=== PATIENT | male | born 1950 | race Caucasian/White ===

== ENCOUNTER 2016-11-02 06:55 | Day surgery (SDC) | payer MEDICARE ==
[~2016-11-02] VITALS: Ht 175.3 cm; Wt 84.1 kg
[~2016-11-02 06:55] MED LIST: AUGMENTIN 875-11 TAB PO; HYDROCODONE-APA1 TAB PO
[2016-11-02 07:42] VITALS: BP 128/61; Ht 175.3 cm; Wt 84.1 kg
[2016-11-02 07:44] LABS: HEMATOCRIT 56.6 % (42.0-54.0); HEMOGLOBIN 18.2 g/dL (13.5-17.5); MCH 31.4 pg (26.0-34.0); MCHC 32.2 g/dL (31.0-37.0); MCV 97.8 fL (80.0-100.0); MEAN PLATELET VOLUME 10.4 fL (7.4-10.4); RBC 5.79 10x6/uL (4.20-6.10); RDW 15.1 % (11.5-14.5); WBC 8.3 10x3/uL (4.8-10.8)
--- NOTE | 2016-11-02 12:20 | NUR ---
PATIENT AMBULATES TO BATHROOM WITHOUT UNSTEADINESS, VOIDS LARGE AMOUNT IN TOILET WITHOUT DIFFICULTY. PIV DC'D WITH TIP INTACT, PATIENT DRESSING IN PERSONAL CLOTHING
--- NOTE | 2016-11-02 12:48 | NUR ---
DISCHARGE INSTRUCTIONS REVIEWED WITH PATIENT AND SPOUSE, DISCHARGED HOME VIA WHEELCHAIR TO PRIVATE VEHICLE WITH SPOUSE
--- NOTE | 2016-11-02 15:44 | OP ---
PATIENT NAME: RAMOS IRIZARRY MEDICAL RECORD: [id number] :[birth year] LOCATION:D.OPS ADMISSION DATE: SURGEON: EDIE CARVAJAL MD DATE OF OPERATION: 11/02/2016 SURGEON: Edie Carvajal MD. PREOPERATIVE DIAGNOSES: 1. History of perforated diverticulitis with large bowel fistula. 2. History of Eligio procedure. POSTOPERATIVE DIAGNOSES: 1. History of perforated diverticulitis with large bowel fistula. 2. History of Eligio procedure. PROCEDURES PERFORMED: 1. Colonoscopy with hot biopsy. 2. Flexible proctoscopy. ANESTHESIA: Total intravenous anesthesia. COMPLICATIONS: None. SPECIMENS: Colon polyp at 30 cm. Case was contaminated. OPERATIVE COURSE: After consent was obtained, the patient was taken to the endoscopy suite and placed in the supine position on the gurney, at which time total intravenous anesthesia was given. A timeout was taken to confirm the correct patient and procedure. A bite block was placed. The patient was placed in left lateral decubitus position. The scope was inserted through the rectum. The rectum was copiously irrigated. The flexible proctoscopy was performed up to 25 cm at which time the staple line was encountered and appeared intact. The rectum was healthy and viable. At this time, the flexible proctoscopy was removed. Next, the ostomy appliance was removed. The colonoscope was inserted through the left lower quadrant colostomy. The colon was insufflated. The scope was advanced to the cecum. The ileocecal valve and the appendiceal orifice were identified. Approximately 13 minutes was spent on withdrawal of the scope. There was some diverticular disease noted in the descending colon. There was a hyperplastic polyp at 30 cm, a hot biopsy was performed. The specimen was sent for pathology. At this time, the colon was desufflated and the colonoscope was removed. The patient tolerated the procedure well. No complications occurred. The patient was discharged to the recovery room in satisfactory condition. TRANSINT:[id number] Voice Confirmation ID: [id number] DOCUMENT ID: [id number] OPERATIVE REPORT [id number] RAMOS IRIZARRY EDIE CARVAJAL MD at 1544 CC: [id number] DICTATION DATE: 11/02/16 1113 INSTRUCTOR EXTENSION WORK: 11/02/16 1158 [facility] [address] [place] [address]
== END 2016-11-02 12:48 | disposition home or self-care (01) ==
LOC: D.OPS 06:55
PROVIDERS: Anesthesiology
DX: K57.00 Diverticulitis of small intestine with perforation and abscess without bleeding (principal); K63.2 Fistula of intestine; F17.200 Nicotine dependence, unspecified, uncomplicated; J44.9 Chronic obstructive pulmonary disease, unspecified

== ENCOUNTER 2016-11-30 06:14 | Inpatient (IN) | payer MEDICARE ==
[2016-11-27 10:18] LABS: HEMATOCRIT 52.9 % (42.0-54.0); HEMOGLOBIN 17.1 g/dL (13.5-17.5); MCHC 32.3 g/dL (31.0-37.0); MCV 98.9 fL (80.0-100.0); MEAN PLATELET VOLUME 10.5 fL (7.4-10.4); RBC 5.35 10x6/uL (4.20-6.10); RDW 14.5 % (11.5-14.5); WBC 8.4 10x3/uL (4.8-10.8)
[~2016-11-30] VITALS: Ht 182.9 cm; Wt 85.7 kg
[2016-11-30] VITALS (12 sets, daily range): BP systolic 125–158; BP diastolic 60–84; BMI 25.7
--- NOTE | 2016-11-30 14:52 | NUR ---
called pharmacy for the d5lr with kcl order
--- NOTE | 2016-11-30 14:52 | NUR ---
PATIENT IS RESTING QUIETLY WITH EYES CLOSED. FAMILY AT BEDSIDE. PATIENT HAS NGT TO RIGHT NARE HOOKED TO LIWS. ASSESSMENT COMPLETED. PATIENT HAS SCDS TO BILATERAL LEGS. NO SIGNS OF DISTRESS NOTED. BED IN LOWEST POSITION, CALL LIGHT IN REACH. BED RAILS UP X'S 2.
--- NOTE | 2016-11-30 16:47 | NUR ---
Patient Name: RAMOS IRIZARRY Admission Status: Elective Accout number: [id number] Admission Date: 11-30-2016 : 1950 Admission Diagnosis: Attending: TRAVIS Current LOS: 1 Anticipated DC Date: 12-04-2016 Planned Disposition: Home Primary Insurance: [facility] Discharge Planning Comments: CM MET WITH PATIENTS FAMILY REGARDING D/C NEEDS AND PLANS. BREN (SISTER), VIOLET (DAUGHTER) STATED PATIENT HAS NO STEPS OR STAIRS AT HIS HOME. FAMILY WILL DRIVE PATIENT HOME AT DISCHARGE. PATIENT HAS NO PCP AND USES [facility] [address]. PATIENT IS INDEPENDENT WITH HIS CARE AND HAS NO DME AT HOME. PATIENT AND FAMILY WAITING TO SEE IF HE NEEDS HOME HEALTH AT DISCHARGE. PCP NONE [facility] [address]- [phone] BREN (SISTER) [phone] VIOLET (DAUGHTER) [phone] Rag Washer: Hattie Lamb How many steps to enter\exit or inside your home? 0 0 * PCP NONE 0 * Pharmacy [facility] [address] 0 * Preadmission Environment Home Alone 0 * ADLs Independent 0 * Equipment None 0 * List name and contact numbers for known caregivers / representatives who currently or will assist patient after discharge: BREN FITZGERALD (SISTER) [phone] VIOLET IRIZARRY (DAUGHTER) [phone] 0 * Community resources currently utilized None 0 * Additional services required to return to the preadmission environment? Yes 0 * Can the patient safely return to the preadmission environment? Yes 0 * Has this patient been hospitalized within the prior 30 days at any hospital? No 0 Grand Total: 0
--- NOTE | 2016-11-30 17:02 | NUR ---
CALLED PHARMACY AGAIN FOR IVF. SPOKE WITH ANTONINO
--- NOTE | 2016-11-30 17:56 | NUR ---
EMPTIED PATIENT'S SHANNAN DRAIN, 120ML APPEARS TO BE BLOOD. COMPRESSED SHANNAN, EMPTIED MEASURING CUP, AND SHANNAN DRAIN WAS FULL AGAIN. EMPTIED 100ML. CLEANED PATIENT'S ABD, SMALL AMOUNT OF BLOOD HAS LEAKED FROM SHANNAN DRAIN SITE. CHANGED PATIENT'S GOWN. EMPTIED 80ML FROM SHANNAN. COMPRESSED, WILL CONTINUE TO MONITOR. PATIENT REQUESTED PAIN MEDICATION, EXPLAINED TO PATIENT THAT HE IS VERY DROWSY AND EXPLAINED THAT IT IS NOT SAFE FOR HIM TO TAKE ANY NARCOTICS AT THIS TIME. SISTER AT BEDSIDE. EXPLAINED TO BOTH OF THEM THAT WHEN PATIENT IS MORE ALERT THAT WE WILL GET HIM SOMETHING FOR PAIN. BEFORE I LEFT THE ROOM, PATIENT ASLEEP AGAIN. HOB 30 DEGREES. NGT TO LIWS. NO SIGNS OF DISTRESS NOTED. OXYGEN VIA NASAL CANNULA AT 2L/MIN.
[2016-11-30 19:38] LABS: BASOPHILS 0.1 % (0.0-2.0); EOSINOPHILS 0.1 % (0-7); HEMATOCRIT 51.7 % (42.0-54.0); HEMOGLOBIN 16.4 g/dL (13.5-17.5); IMMATURE GRANULOCYTES 0.2 % (0-5); LYMPHOCYTES 5.9 % (15-50); MCH 31.8 pg (26.0-34.0); MCHC 31.7 g/dL (31.0-37.0); MCV 100.4 fL (80.0-100.0); MEAN PLATELET VOLUME 10.4 fL (7.4-10.4); MONOCYTES 6.7 % (2-11); PLATELET COUNT 177 10x3/uL (130-400); RBC 5.15 10x6/uL (4.20-6.10); RDW 14.5 % (11.5-14.5)
--- NOTE | 2016-11-30 21:08 | OP ---
PATIENT NAME: RAMOS IRIZARRY MEDICAL RECORD: [id number] :48 LOCATION:D.MS [id number] ADMISSION DATE:11/30/16 SURGEON: EDIE CARVAJAL MD DATE OF OPERATION: 11/30/2016 SURGEON: Edie Carvajal MD PREOPERATIVE DIAGNOSES: 1. History of perforated diverticulitis with intraabdominal abscess, colo-enterocutaneous fistula. 2. History of Eligio's procedure. POSTOPERATIVE DIAGNOSEES: 1. History of perforated diverticulitis with intraabdominal abscess, colo-enterocutaneous fistula. 2. History of Eligio's procedure. PROCEDURES PERFORMED: 1. Laparoscopic lysis of adhesions. 2. Laparoscopic mobilization of splenic flexure. 3. Exploratory laparotomy. 4. Colostomy reversal. ANESTHESIA: General. COMPLICATIONS: None. SPECIMENS: Colostomy. Case was clean contaminated. ESTIMATED BLOOD LOSS: 250 cc. OPERATIVE COURSE: After consent was obtained, the patient was taken to the operating room and placed in the supine position on the operating table. Next, general anesthesia was given via endotracheal intubation after a timeout was taken to confirm the correct patient and procedure. Thereafter, the abdomen was prepped and draped in typical sterile fashion and Ioban dressing was placed. Local anesthetic was injected into the right upper quadrant. Stab incision was made with an 11-blade scalpel. Using a 5-mm bladeless optical trocar, the abdomen was entered under direct laparoscopic vision. Adequate pneumoperitoneum was achieved. The abdominal cavity was inspected. No evidence of bowel injury. No evidence of bleeding. Two additional trocars were then placed, two 5-mm trocars in the right lateral and right lower quadrants under direct laparoscopic vision. Laparoscopic lysis of adhesions were performed. All midline abdominal adhesions were taken down. The adhesions around the colostomy site were taken down. At this time, the splenic flexure was mobilized laparoscopically to create adequate length this time. This was done with the Harmonic scalpel and blunt dissection. Once this was complete, a lower midline abdominal incision made with a 10-blade scalpel. Dissection continued to the level of the external oblique fascia with electrocautery. Fascia was incised using electrocautery. The peritoneum was incised using a 15 blade scalpel. Once the peritoneum was incised, the remaining portion of the incision was opened direct vision using the Bovie electrocautery. The large Willard retractor was then placed into the abdomen. The rectum was mobilized posteriorly along the avascular plane. The peritoneal reflection was taken down with electrocautery allowing for adequate mobilization of the rectum. Once we had adequate mobilization rectum, the OPERATIVE REPORT [id number] RAMOS IRIZARRY colostomy was closed with an 0 Vicryl suture. The skin was around the colostomy was excised using electrocautery. Dissection was then performed down the level of the external oblique fascia using electrocautery and blunt dissection. The colostomy was freed up circumferentially anteriorly and colostomy segment was passed through the opening of the abdominal wall in the abdominal cavity. At this time, there was adequate length on both the descending colon and rectum. A functional rotd-wa-cawu anastomosis was performed. The distal 5 cm of the colostomy were taken off with the linear cutting stapler and sent for pathology. A [id number] colorectal anastomosis was performed. Multiple stay sutures were placed. Enterotomies were created with electrocautery. The common enterotomy was created with the 60 mm green load stapler. The common enterotomy was then closed with the second part and 60 mm linear cutting stapler. The staple line was imbricated using 2-0 Stratafix suture. It was then reinforced with Tisseel and placed in the left pelvic side wall. At this time, the abdomen was copiously irrigated and suctioned. Careful attention was paid to hemostasis. At this time, the old colostomy site was closed with a #1 Prolene. The midline incision was closed with a #1 looped PDS and karla. The old colostomy site was packed with Kerlix gauze. Just prior to closure, a SHANNAN drain was placed through the right lower quadrant trocar in place on the left pericolic gutter and pelvis was secured to the skin with a 2-0 silk suture. Remaining trocar holes were closed with stapler. At the end of the case, all needle and instrument counts were correct. No complications occurred. The patient was extubated and transferred to the PACU in stable condition. TRANSINT:[id number] Voice Confirmation ID: [id number] DOCUMENT ID: [id number] EDIE CARVAJAL MD at 2108 CC: [id number] DICTATION DATE: 11/30/16 1328 EXCELSIOR MACHINE TENDER: 11/30/162021 ADM [facility] [place] [address] [place] [address]
[2016-12-01] VITALS (7 sets, daily range): BP systolic 113–140; BP diastolic 57–68; Ht 182.9 cm; Wt 85.7 kg
--- NOTE | 2016-12-01 03:24 | NUR ---
PATIENT IS LYING IN BED RESTING COMFORTABLY. WAS ASKING SOMEHING FOR PAIN EARLIER. CANNOT STAY AROUSED LONG ENOUGH. HAVE BEEN GIVING THE TYLENOL THAT IS PRESCRIBED AND HE HAS BEEN DOING OK WITH IT. BED LOW LOCKED CALL LIGHT IN REACH
[2016-12-01 05:36] LABS: BASOPHILS 0.2 % (0.0-2.0); EOSINOPHILS 0 % (0-7); HEMATOCRIT 47.3 % (42.0-54.0); IMMATURE GRANULOCYTES 0.2 % (0-5); LYMPHOCYTES 8.4 % (15-50); MCH 31.4 pg (26.0-34.0); MCHC 31.7 g/dL (31.0-37.0); MONOCYTES 6.2 % (2-11); PLATELET COUNT 154 10x3/uL (130-400); RBC 4.78 10x6/uL (4.20-6.10); RDW 14.5 % (11.5-14.5); WBC 10.6 10x3/uL (4.8-10.8)
--- NOTE | 2016-12-01 06:11 | NUR ---
PATIENT IS RESTING IN BED COMFORTABLY. 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 PAIN IS GOING DOWN. DENIED NEEDS AT THIS TIME. INTRUCTED TO CALL LIF NEEDED ANYTHING. PATIENT VERBALIZED UNDERSTANDING. BED LOW, LOCKED, CALL LIGHT IN REACH.
[2016-12-01 06:27] LABS: ANION GAP 9.1 mmol/L (8-16); CARBON DIOXIDE 29.7 mmol/L (21.0-32.0); CREATININE - SERUM 1.2 mg/dL (0.6-1.3); MAGNESIUM - SERUM 1.4 mg/dL (1.8-2.4); POTASSIUM - SERUM 4.8 mmol/L (3.5-5.1)
--- NOTE | 2016-12-01 07:05 | NUR ---
PATIENT RESTING QUIETLY WITH EYES CLOSED UPON ENTERING THE ROOM. PATIENT AROUSED EASILY, ORIENTED X'S 4. ASSESSMENT COMPLETED AT THIS TIME. NGT TO RIGHT NARE HOOKED TO LIWS, ONLY 50ML DARK GREEN GASTRIC CONTENT IN THE CANNESTER. CHECKED NGT FOR PLACEMENT VIA AUSCULTATION. AUSCULTATED THE SWISH. THEN ASPIRATED, DID NOT GET ANY RETURN.
--- NOTE | 2016-12-01 18:30 | NUR ---
LINDSEY CARE COMPLETED BY VINEET MCRAE.
[2016-12-02 04:00] VITALS: BP 116/52
[2016-12-02 06:30] LABS: BASOPHILS 0.1 % (0.0-2.0); EOSINOPHILS 0.4 % (0-7); HEMATOCRIT 42.2 % (42.0-54.0); HEMOGLOBIN 13.1 g/dL (13.5-17.5); IMMATURE GRANULOCYTES 0.4 % (0-5); LYMPHOCYTES 5.3 % (15-50); MCH 31.3 pg (26.0-34.0); MCV 100.7 fL (80.0-100.0); MEAN PLATELET VOLUME 11.1 fL (7.4-10.4); MONOCYTES 7.1 % (2-11); NEUTROPHILS 86.7 % (40-80); PLATELET COUNT 146 10x3/uL (130-400); RBC 4.19 10x6/uL (4.20-6.10); RDW 14.6 % (11.5-14.5)
[2016-12-02 06:44] LABS: WBC 13.4 10x3/uL (4.8-10.8)
[2016-12-02 06:56] LABS: ANION GAP 5.1 mmol/L (8-16); CALCIUM 7.6 mg/dL (8.5-10.1); CARBON DIOXIDE 34.4 mmol/L (21.0-32.0); CREATININE - SERUM 1.1 mg/dL (0.6-1.3); POTASSIUM - SERUM 4.5 mmol/L (3.5-5.1)
[2016-12-02 06:57] LABS: MAGNESIUM - SERUM 1.9 mg/dL (1.8-2.4)
--- NOTE | 2016-12-02 07:55 | NUR ---
NGT D/C BY WINDROWER OPERATOR. MONITORED, ALL STEPS FOLLOWED APPROPRIATELY.
[2016-12-02 08:13] VITALS: BP 127/53
[2016-12-02 12:10] VITALS: BP 112/57
--- NOTE | 2016-12-02 13:11 | NUR ---
NUTRITION MONITORING & EVAL PT VISIT. NG TUBE DC'D, CLEAR LIQUID DIET STARTED. WILL CONTINUE TO MONITOR DIET ADVANCEMENT, PT PROGRESS. RD FOLLOWING
--- NOTE | 2016-12-02 16:10 | NUR ---
AMBULATED WITH PATIENT IN THE HE. NOW SITTING ON THE SIDE OF THE BED USING INCENTIVE SPIROMETER.
[2016-12-02 16:36] VITALS: BP 96/51
[2016-12-02 19:00] VITALS: BP 106/49
--- NOTE | 2016-12-02 20:00 | NUR ---
ASSESSMENT PER FLOWSHEET. IV PATENT RT FOREARM OF D5LR W/10MEQ KCL INFUSING AT 125CC'S/HR. PROFESSOR OF MEDICINE OF MORPHINE IN USE WITH SETTINGS AT 1MG Q10MIN W/10MG Q4H L/O. O2 USES PRN OFF AT PRESENT. MIDLINE INCISION C/D/I WITH ELINOR INTACT. SHANNAN DRAIN PATENT AND COMPRESSED SCANT AMOUNT OF BLOODY DRAINAGE NOTED. BED ALARM BED ON. SR UP X2 CALL LIGHT WITHIN REACH.
--- NOTE | 2016-12-02 20:00 | NUR ---
ASSESSMENT PER FLOWSHEET. IV PATENT RT FOREARM OF D5W AT KVO RATE. SITE CLEAR. SR UP X2 CALL LIGHT WITHIN REACH BED ALARM BED ACTIVATED. SCD'S ON
--- NOTE | 2016-12-02 21:00 | NUR ---
MEDS GIVEN PER NOV. UP TO BR PASSED GAS NO STOOL.
--- NOTE | 2016-12-02 21:30 | NUR ---
MEDS GIVEN IN PUDDING.
--- NOTE | 2016-12-02 23:00 | NUR ---
INC URINE COMPLETE BED BATH WITH LINENS CHANGED PER VINEET MULLINS.
[2016-12-03] VITALS: BP 113/56
--- NOTE | 2016-12-03 | NUR ---
UP TO BR HAD 3 TINY BLOOD CLOTS FROM RECTAL AREA. NO STOOL.
--- NOTE | 2016-12-03 02:00 | NUR ---
INC URINE LINENS CHANGED. RESTING QUIETLY.
--- NOTE | 2016-12-03 03:00 | NUR ---
RESTING AT THIS TIME USES URINAL TO VOID.
[2016-12-03 04:00] VITALS: BP 104/50
--- NOTE | 2016-12-03 05:00 | NUR ---
NO CHANGES IN ASSESSMENT. SR UP X2 CALL LIGHT WITHIN REACH MEDS GIVEN PER NOV.
--- NOTE | 2016-12-03 06:19 | NUR ---
MEDS GIVEN PER MAR. NO CHANGES IN ASSESSMENT.
[2016-12-03 06:32] LABS: CALC OSMOLALITY 276 mosm/kg (275-300); CALCIUM 8.4 mg/dL (8.5-10.1); CHLORIDE - SERUM 104 mmol/L (98-107); CREATININE - SERUM 0.9 mg/dL (0.6-1.3); GLUCOSE 94 mg/dL (74-106); MAGNESIUM - SERUM 1.7 mg/dL (1.8-2.4); POTASSIUM - SERUM 3.9 mmol/L (3.5-5.1); SODIUM 139 mmol/L (136-145); UREA NITROGEN 10 mg/dL (7-18); eGFR NON AFRICAN AMERICAN 89 mL/min (90-120)
[2016-12-03 06:34] LABS: BASOPHILS 0.1 % (0.0-2.0); EOSINOPHILS 2.4 % (0-7); HEMATOCRIT 37.7 % (42.0-54.0); HEMOGLOBIN 11.7 g/dL (13.5-17.5); IMMATURE GRANULOCYTES 0.4 % (0-5); LYMPHOCYTES 8.2 % (15-50); MCV 99.7 fL (80.0-100.0); MEAN PLATELET VOLUME 10.8 fL (7.4-10.4); MONOCYTES 7.4 % (2-11); NEUTROPHILS 81.5 % (40-80); PLATELET COUNT 141 10x3/uL (130-400); RBC 3.78 10x6/uL (4.20-6.10); RDW 14.4 % (11.5-14.5); WBC 11.4 10x3/uL (4.8-10.8)
--- NOTE | 2016-12-03 07:42 | NUR ---
PATIENT RESTING IN BED AND RECEIVING A BREATHING TREATMENT. PATIENT IS AWAKE, ALERT, AND ORIENTED X4. IV SITE PATENT WITHOUT ANY S/S OF INFECTION IN PATIENT'S RIGHT FOREARM. SHELTER DIRECTOR MORPHINE IN USE AT THE BEDSIDE. PATIENT DENIES ANY NEEDS AT PRESENT TIME. CALL LIGHT IN PATIENT'S REACH. WILL MONITOR.
[2016-12-03 07:52] VITALS: BP 173/67
--- NOTE | 2016-12-03 08:25 | NUR ---
SCHEDULED MORNING MEDICATIONS GIVEN TO PATIENT. PATIENT TOLERATED WELL. ASSESSMENT COMPLETED. SEE FLOWSHEET FOR ANY DETAILS. IV SITE PATENT WITHOUT ANY S/S OF INFECTION IN PATIENT'S RIGHT FOREARM. PATIENT DENIES ANY NEEDS. CALL LIGHT IN PATIENT'S REACH. WILL MONITOR PATIENT.
[2016-12-03 12:21] VITALS: BP 117/59
--- NOTE | 2016-12-03 14:00 | NUR ---
PATIENT RESTING QUIETLY WITH EYES CLOSED. NO S/S OF DISTRESS NOTED. CALL LIGHT IN PATIENT'S REACH. WILL MONITOR PATIENT.
[2016-12-03 15:48] VITALS: BP 118/49
[2016-12-03 20:00] VITALS: BP 135/61
--- NOTE | 2016-12-03 20:00 | NUR ---
PATIENT IN BED WATCHING TV. HOB 30 DEGREES. AAOX4. RR EVEN AND UNLABORED. O2 @ 2L VIA NC. 0 S/S OF DISTRESS. DENIES PAIN AT THIS TIME. IV TO RIGHT FA PATENT WITH NO REDNESS OR SWELLING. MIDLINE INCISION TO ABD CLOSED WITH ELINOR AND WELL APPROXIMATED. DRESSING TO LLQ. SHANNAN DRAIN TO RLQ COMPRESSED. SCD'S IN ROOM BUT OFF. SRX2. BED LOW. CALL LIGHT WITHIN REACH.
--- NOTE | 2016-12-03 22:05 | NUR ---
RESITED IV TO LEFT FA. NIGHTTIME MEDS GIVEN. NO OTHER NEEDS AT THIS TIME.
[2016-12-04] VITALS (7 sets, daily range): BP systolic 114–132; BP diastolic 54–69
--- NOTE | 2016-12-04 03:48 | NUR ---
PATIENT SLEEPING WITH NO DISTRESS NOTED. CALL LIGHT WITHIN REACH.
[2016-12-04 05:05] LABS: BASOPHILS 0.2 % (0.0-2.0); EOSINOPHILS 6.8 % (0-7); HEMATOCRIT 36.2 % (42.0-54.0); HEMOGLOBIN 11.2 g/dL (13.5-17.5); IMMATURE GRANULOCYTES 0.2 % (0-5); LYMPHOCYTES 14.4 % (15-50); MCH 30.7 pg (26.0-34.0); MCHC 30.9 g/dL (31.0-37.0); MCV 99.2 fL (80.0-100.0); MEAN PLATELET VOLUME 10.7 fL (7.4-10.4); NEUTROPHILS 69.4 % (40-80); PLATELET COUNT 165 10x3/uL (130-400); RBC 3.65 10x6/uL (4.20-6.10); RDW 14.3 % (11.5-14.5); WBC 8.8 10x3/uL (4.8-10.8)
[2016-12-04 05:34] LABS: CALC OSMOLALITY 282 mosm/kg (275-300); CALCIUM 8.4 mg/dL (8.5-10.1); CARBON DIOXIDE 37.9 mmol/L (21.0-32.0); CHLORIDE - SERUM 106 mmol/L (98-107); CREATININE - SERUM 0.8 mg/dL (0.6-1.3); GLUCOSE 106 mg/dL (74-106); MAGNESIUM - SERUM 1.8 mg/dL (1.8-2.4); POTASSIUM - SERUM 3.9 mmol/L (3.5-5.1); SODIUM 143 mmol/L (136-145); eGFR NON AFRICAN AMERICAN > 90 mL/min (90-120)
[2016-12-04 05:37] LABS: UREA NITROGEN 7 mg/dL (7-18)
--- NOTE | 2016-12-04 07:00 | NUR ---
REPORT RECIEVED ASSUMED CARE. PATIENT IN BED WITH IV INTACT. NO COMPLAINTS AT THIS TIME. EYES CLOSED RESTING. CALL LIGHT WITHIN REACH.
--- NOTE | 2016-12-04 09:50 | NUR ---
DRESSING TO SHANNAN DRAIN CHANGED AT THIS TIME. SHANNAN SITE CLEAN AND DRY WITH NO SIGNS OF INFECTION. DRESSING TO LEFT QUADRANT SITE CHANGED. PACKING REMOVED AT THIS TIME. NS PACKING PLACED TO WOUND AT THIS TIME. CLEAN GAUZE COVERING INCISION. PATIENT TOLERATED WITH SMALL AMOUNT OF PAIN. IV INTACT. CALL LIGHT WITHIN REACH.
--- NOTE | 2016-12-04 13:52 | NUR ---
Nutrition Follow Up: Pt was walking with PT at the time of RD visit. Chart reviewed. Pt is eating 54% meal avg on a full liquid diet. +BM 12/04/16. Meds noted including D5 LR @ 125 ml/hr, MV. Labs noted. Pt with fair po intake at this time. Rec continue advancing diet as tolerated when medically feasible. Will send Ensure with meals. RD following.
[2016-12-04] MEDS ORDERED: LEVAQUIN750 MG PO (14:30)
[2016-12-04] MEDS ORDERED: HYDROCODON-ACE1 EAC7 PO (14:30)
[2016-12-04] MEDS ORDERED: MIRALAX17 GM PO (14:31)
--- NOTE | 2016-12-04 17:14 | NUR ---
CM REASSESSMENT NOTE: REF. HAS BEEN SENT TO [employer] [facility] FOR WOUND CARE. PATIENT SIGNED THE [facility] FORM. WILL ONLY NEED TO SEND D/C PAPERS WHEN PATIENT IS DISCHARGED. PATIENT KNOWS TO HAVE SOMEONE WITH HIM WHEN HOME HEALTH COMES OUT TO ASSIST HIM WITH DRESSING CHANGES DAILY.
--- NOTE | 2016-12-04 17:30 | NUR ---
SHANNAN DRAIN REMOVED TO RIGHT SIDE ORDERED AT THIS TIME. PATIENT TOLERATED WITH SMALL AMOUNT OF PAIN. DRESSING PLACED OVER SITE. CALL LIGHT WITHIN REACH.
--- NOTE | 2016-12-04 18:45 | NUR ---
PATIENT IN BED WITH IV INTACT. NO COMPLAINTS AT THIS TIME. CALL LIGHT WITHIN REACH.
--- NOTE | 2016-12-04 19:39 | NUR ---
WAS IN THE BED, SOB. SPO2 53% ON RA. NC WAS ON THE FLOOR AT THE END OF BED, NEW CANNULA PLACED ON PATIENT. TOOK ABOUT 10 MINUTES FOR OXYGEN TO COME BACK UP TO 96% ON 2L NC.
--- NOTE | 2016-12-04 19:54 | NUR ---
PATIENT NASAL CANULA SITTING ON THE FLOOR. PATIENT SAT 50% RT ADMINISTERED UPDRAFT AND APPLIED NASAL CANULA. SAT 96% ON 2L O2. NO SIGNS OF DISTRESS NOTED AT THIS TIME. BED LOW. CALL LIGHT IN REACH.
[2016-12-05] VITALS: BP 121/58
--- NOTE | 2016-12-05 02:08 | NUR ---
RESTING WITH EYES CLOSED, RESP WITH EASE, IV INFUSING TO R AC WITH EASE, FALL PRECAUTIONS IN PLACE, CL IN REACH
[2016-12-05 04:00] VITALS: BP 115/60
--- NOTE | 2016-12-05 07:00 | NUR ---
REPORT RECIEVED ASSUMED CARE. PATIENT IN BED WITH IV INTACT. NO COMPLAINTS. CALL LIGHT WITHIN REACH.
[2016-12-05 07:26] LABS: BASOPHILS 0.4 % (0.0-2.0); EOSINOPHILS 8.8 % (0-7); HEMOGLOBIN 11.6 g/dL (13.5-17.5); IMMATURE GRANULOCYTES 0.4 % (0-5); LYMPHOCYTES 11.5 % (15-50); MCHC 30.5 g/dL (31.0-37.0); MEAN PLATELET VOLUME 10.5 fL (7.4-10.4); MONOCYTES 11.4 % (2-11); NEUTROPHILS 67.5 % (40-80); PLATELET COUNT 194 10x3/uL (130-400); RBC 3.74 10x6/uL (4.20-6.10); RDW 14.5 % (11.5-14.5); WBC 7.8 10x3/uL (4.8-10.8)
[2016-12-05 07:29] LABS: MCV 101.6 fL (80.0-100.0)
[2016-12-05 07:42] LABS: CALC OSMOLALITY 275 mosm/kg (275-300); CALCIUM 7.6 mg/dL (8.5-10.1); CARBON DIOXIDE 37.8 mmol/L (21.0-32.0); CHLORIDE - SERUM 102 mmol/L (98-107); CREATININE - SERUM 0.9 mg/dL (0.6-1.3); GLUCOSE 89 mg/dL (74-106); MAGNESIUM - SERUM 1.9 mg/dL (1.8-2.4); SODIUM 140 mmol/L (136-145); UREA NITROGEN 7 mg/dL (7-18); eGFR NON AFRICAN AMERICAN 89 mL/min (90-120)
[2016-12-05 09:32] VITALS: BP 111/56
--- NOTE | 2016-12-05 09:40 | NUR ---
PATIENT IN BED WITH IV INTACT. DRESSING TO LEFT INCISION WET TO DRY CHANGED. NO SIGNS OF INFECTION. WOUND BED PINK. PATIENT TOLERATED WITH SMALL AMOUNT OF PAIN. CALL LIGHT WITHIN REACH.
--- NOTE | 2016-12-05 11:40 | NUR ---
PATIENT RECIEVED DC INSTRUCTIONS. VERBALIZED UNDERSTANDING. NO QUESTIONS AT THIS TIME. IV REMOVED WITH CATH TIP INTACT. FAMILY AT BEDSIDE. CALL LIGHT WITHIN REACH.
--- NOTE | 2016-12-05 11:51 | NUR ---
ROOM AIR SPO2 78%
--- NOTE | 2016-12-05 12:29 | NUR ---
Spoke to Dr. Valenzuela regarding o2 sat 78% on room air. Order received for patient to have home oxygen. Spoke to patient and he does not have a preference on a DME company. Kendrick spoke to Suresh with [facility] and provided information. Faxed referral to Suresh @ [facility]. Suresh to deliver portable O2 to patient room prior to discharge. Nurse notified of the dc plans for the oxygen.
--- NOTE | 2016-12-05 12:40 | NUR ---
PATIENT WAITING FOR HOME O2 TO BE PROVIDED FOR HOME. SATS 78% RESTING ON ROOM AIR. CALL LIGHT WITHIN REACH. FAMILY AT BEDSIDE.
--- NOTE | 2016-12-05 15:40 | NUR ---
PATIENT DISCHARGED VIA WC WITH PERSONAL BELONGINGS TO PRIVATE VEHICLE.
== END 2016-12-05 16:21 | disposition home health service (06) | DRG 334 ==
LOC: D.SDCHOLD 06:14 → D.MS 06:14 → D.SDCHOLD 07:30 → D.MS 13:51
PROVIDERS: Anesthesiology; ADMIT Surgery
PROC: 0DB Gastrointestinal System, Excision (ICD-10-PCS; principal; 2016-11-30 08:30)
PROC: 0DNL4ZZ Release Transverse Colon, Percutaneous Endoscopic Approach (ICD-10-PCS; principal; 2016-11-30 08:30)
PROC: 0DBP0ZZ Excision of Rectum, Open Approach (ICD-10-PCS; 2016-11-30 08:30)
DX: Z43.3 Encounter for attention to colostomy (principal); J44.9 Chronic obstructive pulmonary disease, unspecified; F17.200 Nicotine dependence, unspecified, uncomplicated; Z53.31 Laparoscopic surgical procedure converted to open procedure

== ENCOUNTER 2016-12-11 10:10 | Inpatient (IN) | payer MEDICARE ==
[~2016-12-11] VITALS: Ht 182.9 cm; Wt 85.9 kg
[~2016-12-11 10:10] MED LIST changes: +HYDROCODON-ACE1 EAC7 PO; +LEVAQUIN750 MG PO; +MIRALAX17 GM PO
[2016-12-11 11:12] LABS: BASOPHILS 0.2 % (0.0-2.0); EOSINOPHILS 0 % (0-7); HEMATOCRIT 39.6 % (42.0-54.0); HEMOGLOBIN 12.5 g/dL (13.5-17.5); IMMATURE GRANULOCYTES 1.9 % (0-5); LYMPHOCYTES 9.7 % (15-50); MCH 31.3 pg (26.0-34.0); MCHC 31.6 g/dL (31.0-37.0); MEAN PLATELET VOLUME 9.5 fL (7.4-10.4); NEUTROPHILS 78.2 % (40-80); RDW 14.6 % (11.5-14.5)
[2016-12-11 11:20] LABS: PLATELET COUNT 452 10x3/uL (130-400)
[2016-12-11 11:23] LABS: ANION GAP 9.3 mmol/L (8-16); CALCIUM 8.1 mg/dL (8.5-10.1); CARBON DIOXIDE 36.4 mmol/L (21.0-32.0); CREATININE - SERUM 2.9 mg/dL (0.6-1.3); POTASSIUM - SERUM 4.7 mmol/L (3.5-5.1)
--- NOTE | 2016-12-11 12:30 | NUR ---
RECEIVED TO ROOM 2225 FROM MD OFFICE ORIENTED TO ROOM AND CALL LIGHT SYSTEM. IV ATTEMPTED X2 WITH 22 GA IV CATHS. ABLE TO GET BOTH IN WITH GREAT BLOOD RETURN BOTH BLEW WHEN FLUSHED. 16 FR LINDSEY CATH INSERTED USING STERILE TECHNIQUE WITH 50 CC DARK YELLOW URINE NOTED IN BAG. WILL SEE IF ANOTHER NURSE CAN TRY IV. CALL LIGHT IN REACH. LIQUID TRAY IN ROOM. WILL CONTINUE WITH PLAN OF CARE.
--- NOTE | 2016-12-11 13:20 | NUR ---
IV SITED TO LEFT HAND WITH 20 GA X1 PER RAAD SIGALA.
--- NOTE | 2016-12-11 13:42 | NUR ---
MEDS ADMINISTERED PER ORDER. CALL LIGHT IN REACH.
[2016-12-11 14:50] LABS: APPEARANCE CLOUDY (CLEAR); COLOR DK YELLOW (YELLOW); GLUCOSE NEGATIVE (NEGATIVE); LEUKOCYTE ESTERASE TRACE (NEGATIVE); NITRITE NEGATIVE (NEGATIVE); PROTEIN 1+ mg/dL (NEGATIVE); SPECIFIC GRAVITY 1.025 (1.005-1.020)
[2016-12-11 14:51] LABS: BILIRUBIN NEGATIVE (NEGATIVE); KETONE NEGATIVE (NEGATIVE); UROBILINOGEN NORMAL (NORMAL)
[2016-12-11 14:52] LABS: BACTERIA MANY /hpf (NONE SEEN); EPITHELIAL CELLS 0-5 /hpf (0-5); GRANULAR CAST 0-5 /lpf (NONE SEEN); HYALINE CAST 0-5 /lpf (NONE SEEN); MUCUS <1+ /lpf (NONE SEEN); RED CELLS - URINE 0-5 /hpf (0-5); WHITE CELLS - URINE 0-5 /hpf (0-5)
[2016-12-11 16:02] VITALS: BP 107/41; Ht 182.9 cm; Wt 85.9 kg
--- NOTE | 2016-12-11 16:14 | NUR ---
PT SEEN AND ASSESSED. ELINOR NOTED TO MIDABDOMEN WITH REDDNESS NOTED TO INCISION SITE-NO DRAINAGE. ALL ELINOR INTACT. DRESSING NOTED TO LLQ-NOTED OPEN WOUND ABOUT HALF DOLLAR IN SIZE WITH PACKING NOTED-NO DRAINAGE NOTED. INS/EXP WHEEZES NOTED-STATES HAS BEEN SMOKING UNTIL YESTERDAY. STATES LAST BM WAS 12/10/16 WITH NO N/V NOTED OR VOICED. CALL LIGHT IN REACH
[2016-12-11 16:26] VITALS: BP 100/55
--- NOTE | 2016-12-11 16:28 | NUR ---
NEVIN PETER. CALL LIGHT IN REACH.
--- NOTE | 2016-12-11 18:20 | NUR ---
DRSG TO ABD CHANGED PER ORDER. NO CHANGES IN INITIAL ASSESSMENT. CALL LIGHT IN REACH. WILL CONTINUE WITH PLAN OF CARE.
--- NOTE | 2016-12-11 18:53 | NUR ---
INFORMED DR. CARDOSO OF OUTPUT.
--- NOTE | 2016-12-11 19:30 | NUR ---
Received patient resting quietly in room. PIV in right hand infusing NS @125ml/hr. Alert and oriented x 4, avendano catheter in place. Midline incision stapled and well aproximated, healing well, gauze dressing to left side of incision is clean, dry and intact with no signs of oozing. No complaints voiced at this time.
[2016-12-11 19:46] LABS: ERYTHROCYTE SEDIMENTATION RATE 24 mm/hr (0-20)
[2016-12-11 22:05] VITALS: BP 123/67
--- NOTE | 2016-12-11 22:39 | NUR ---
Complains of abdominal and back pain. Right Of Way Agent notified. Paged Dr.Latham ford for , made aware of this. Orders received. Patient given [employer] 10-325 tab po PRN at this time. Will monitor for effectiveness. Pain level is 8/10.
--- NOTE | 2016-12-11 23:30 | NUR ---
Patient reports analgesic effective, resting quietly. Encouraged to use incentive spirometer. Feeling tired, only able to get to 750. Oxygen remains on @ 2L/min.
[2016-12-12] VITALS: BP 126/61
[2016-12-12 05:26] VITALS: BP 119/57
--- NOTE | 2016-12-12 05:35 | NUR ---
Rested on and off, poor sleep pattern this shift. Denies pain or discomfort at this time. IV infusing NS @125ml/hr, avendano catheter draining. Oxygen remains on continuously.
[2016-12-12 06:45] LABS: BASOPHILS 0.2 % (0.0-2.0); HEMATOCRIT 36.7 % (42.0-54.0); HEMOGLOBIN 11.6 g/dL (13.5-17.5); IMMATURE GRANULOCYTES 1.9 % (0-5); MCH 30.6 pg (26.0-34.0); MCHC 31.6 g/dL (31.0-37.0); MEAN PLATELET VOLUME 10.1 fL (7.4-10.4); MONOCYTES 8.9 % (2-11); PLATELET COUNT 484 10x3/uL (130-400); RBC 3.79 10x6/uL (4.20-6.10); RDW 14.7 % (11.5-14.5); WBC 13.8 10x3/uL (4.8-10.8)
[2016-12-12 06:57] LABS: MCV 96.8 fL (80.0-100.0)
--- NOTE | 2016-12-12 07:09 | NUR ---
BMP not resulted yet in computer for electrolyte protocol.
[2016-12-12 07:23] LABS: ANION GAP 6.7 mmol/L (8-16); CALCIUM 7.3 mg/dL (8.5-10.1); CARBON DIOXIDE 35.6 mmol/L (21.0-32.0); CREATININE - SERUM 1.8 mg/dL (0.6-1.3); MAGNESIUM - SERUM 1.9 mg/dL (1.8-2.4)
[2016-12-12 07:24] LABS: POTASSIUM - SERUM 3.3 mmol/L (3.5-5.1)
[2016-12-12 08:57] VITALS: BP 116/55
--- NOTE | 2016-12-12 12:02 | NUR ---
PATIENT IN LOW DOWNEY POSITION RESTING QUIETLY. RESPIRATIONS EVEN AND UNLABORED. PRIMARY NURSE JUAN BAER PRESENT. SIDE RAILS UP X2. BED IN LOW POSITION. CALL LIGHT IN REACH.
[2016-12-12 12:24] VITALS: BP 121/64
[2016-12-12 16:02] VITALS: BP 118/68
--- NOTE | 2016-12-12 19:50 | NUR ---
PT UP TO BATHROOM AT THIS TIME WITH ASSISTANCE. RING PACKER HELPED PT BACK TO BED, DENIES ANY NEEDS. CALL LIGHT IN REACH, BED IN LOWEST POSITION, ASSESSMENT PER FLOWSHEET.
[2016-12-12 20:00] VITALS: BP 121/54
[2016-12-13 00:52] VITALS: BP 133/60
--- NOTE | 2016-12-13 04:06 | NUR ---
PT RESTING QUIETLY, AGREE WITH INSTRUMENTS SALES REPRESENTATIVE ASSESSMENT, INSTRUMENTS SALES REPRESENTATIVE TO CONTINUE CARE.
[2016-12-13 05:36] LABS: BASOPHILS 0.2 % (0.0-2.0); EOSINOPHILS 1.1 % (0-7); HEMATOCRIT 36.7 % (42.0-54.0); HEMOGLOBIN 11.7 g/dL (13.5-17.5); IMMATURE GRANULOCYTES 1.3 % (0-5); LYMPHOCYTES 9.7 % (15-50); MCHC 31.9 g/dL (31.0-37.0); MCV 97.1 fL (80.0-100.0); MEAN PLATELET VOLUME 9.9 fL (7.4-10.4); MONOCYTES 10.4 % (2-11); NEUTROPHILS 77.3 % (40-80); PLATELET COUNT 467 10x3/uL (130-400); RBC 3.78 10x6/uL (4.20-6.10); RDW 14.9 % (11.5-14.5); WBC 12.7 10x3/uL (4.8-10.8)
[2016-12-13 05:40] VITALS: BP 124/57
[2016-12-13 05:53] LABS: ANION GAP 6.2 mmol/L (8-16); CALCIUM 7.4 mg/dL (8.5-10.1); CARBON DIOXIDE 33.7 mmol/L (21.0-32.0); MAGNESIUM - SERUM 1.8 mg/dL (1.8-2.4)
[2016-12-13 05:57] LABS: CREATININE - SERUM 1.1 mg/dL (0.6-1.3)
[2016-12-13 05:59] LABS: POTASSIUM - SERUM 2.9 mmol/L (3.5-5.1)
--- NOTE | 2016-12-13 06:29 | NUR ---
CRITICAL K OF 2.9 TREATED PO PER THE ELECTROLYTE
--- NOTE | 2016-12-13 07:15 | NUR ---
PT REC'D FROM JUAN FROST. RESTING IN BED WATCHING TV. AAOX4. RATING CURRENT PAIN IN ABD 4/10. DRESSING TO ABD CLEAN, DRY, AND INTACT. WILL CHANGE PER ORDERS. MIDLINE ABD INCISION FREE OF S/SX OF INFECTION. APPROXIMATE. BED LOW, CALL LIGHT IN REACH, DENIES NEEDS. CPOC.
[2016-12-13 08:06] VITALS: BP 123/53
--- NOTE | 2016-12-13 08:15 | NUR ---
ALERT IN BED WITH PRIMARY NURSE JUAN CHARLES PRESENT. NO SIGNS OF DISTRESS NOTED. SIDE RAILS UP X2. BED IN LOW POSITION. CALL LIGHT IN REACH.
--- NOTE | 2016-12-13 09:30 | NUR ---
MORNING MEDS PASSED AT THIS TIME. COMPLETE BED BATH AND LINEN CHANGE BEING GIVEN BY VINEET CORDOVA. PT HAD LARGE LIQUID BM. BED LOW, CALL LIGHT IN REACH, DENIES NEEDS. CPOC.
[2016-12-13 12:40] VITALS: BP 107/62
[2016-12-13 16:02] VITALS: BP 107/53
--- NOTE | 2016-12-13 16:10 | NUR ---
ALERTED BY VINEET CORDOVA, THAT PT IV WAS LEAKING. ABLE TO FLUSH IV W/O RESISTENCE. WILL CHANGE DRESSING AND ATTEMPT TO CLEAN AROUND SITE.
[2016-12-13 19:00] VITALS: BP 128/62
--- NOTE | 2016-12-13 19:24 | NUR ---
BROUGHT PATIENT A BLANKET AND WATER PER HIS REQUEST. PATIENT DENIES OTHER NEEDS AT THIS TIME. BED IN LOWEST POSITION AND CALL LIGHT WITHIN REACH. ENCOURAGED PATIENT TO CALL IF HE HAS OTHER NEEDS.
--- NOTE | 2016-12-13 23:52 | NUR ---
SPOKE WITH JOSE G ABOUT CRITICAL K+ THIS MORNING. ONLY ONE DOSE OF PO POTASSIUM WAS GIVEN FOR 2.9 POTASSIUM. PER JOSE G I PUT IN AN ORDER FOR A POTASSIUM DRAW TONIGHT.
[2016-12-14] VITALS: BP 117/62
[2016-12-14 04:00] VITALS: BP 126/62
[2016-12-14 06:56] LABS: BASOPHILS 0.2 % (0.0-2.0); EOSINOPHILS 1.7 % (0-7); HEMATOCRIT 37.2 % (42.0-54.0); HEMOGLOBIN 11.9 g/dL (13.5-17.5); IMMATURE GRANULOCYTES 0.8 % (0-5); LYMPHOCYTES 9.1 % (15-50); MCV 96.9 fL (80.0-100.0); MONOCYTES 12.2 % (2-11); PLATELET COUNT 449 10x3/uL (130-400); RBC 3.84 10x6/uL (4.20-6.10); RDW 15.2 % (11.5-14.5); WBC 12.1 10x3/uL (4.8-10.8)
[2016-12-14 07:12] LABS: CALC OSMOLALITY 285 mosm/kg (275-300); CALCIUM 7.4 mg/dL (8.5-10.1); CHLORIDE - SERUM 107 mmol/L (98-107); GLUCOSE 95 mg/dL (74-106); MAGNESIUM - SERUM 1.5 mg/dL (1.8-2.4); POTASSIUM - SERUM 3.2 mmol/L (3.5-5.1); SODIUM 144 mmol/L (136-145); eGFR NON AFRICAN AMERICAN 79 mL/min (90-120)
[2016-12-14 07:20] LABS: UREA NITROGEN 9 mg/dL (7-18)
[2016-12-14 08:12] VITALS: BP 134/78
--- NOTE | 2016-12-14 08:48 | NUR ---
PT SEEN AND ASSESSED. NO COMPLAINTS AT PRESENT. MIDLINE INCISION CLEAN DRY AND INTACT WITH ELINOR INTACT. NO REDDNESS NOTED. DRESSING NOTED TO Q - WILL CHANGE THIS AM. LINDSEY NOTED WITH YELLOW DRAINAGE. OXYGEN AT 2LNC NO SOB NOTED OR VOICED. LUNG SOUNDS CLEAR BILAT. CALL LIGHT IN REACH
[2016-12-14 11:12] LABS: ANA REFLEX - DIRECT Negative (Negative)
[2016-12-14 12:04] VITALS: BP 119/62
[2016-12-14 15:59] VITALS: BP 129/63
[2016-12-15] VITALS: BP 130/72
[2016-12-15 04:00] VITALS: BP 136/64
[2016-12-15 05:31] LABS: BASOPHILS 0.2 % (0.0-2.0); EOSINOPHILS 3.3 % (0-7); HEMATOCRIT 36.3 % (42.0-54.0); HEMOGLOBIN 11.5 g/dL (13.5-17.5); IMMATURE GRANULOCYTES 0.9 % (0-5); LYMPHOCYTES 13.8 % (15-50); MCH 30.6 pg (26.0-34.0); MCHC 31.7 g/dL (31.0-37.0); MCV 96.5 fL (80.0-100.0); MEAN PLATELET VOLUME 9.5 fL (7.4-10.4); MONOCYTES 12.3 % (2-11); NEUTROPHILS 69.5 % (40-80); PLATELET COUNT 415 10x3/uL (130-400); RBC 3.76 10x6/uL (4.20-6.10); RDW 14.9 % (11.5-14.5); WBC 9.4 10x3/uL (4.8-10.8)
[2016-12-15 05:48] LABS: CALC OSMOLALITY 283 mosm/kg (275-300); CALCIUM 7.6 mg/dL (8.5-10.1); CARBON DIOXIDE 32.3 mmol/L (21.0-32.0); CHLORIDE - SERUM 107 mmol/L (98-107); GLUCOSE 89 mg/dL (74-106); MAGNESIUM - SERUM 1.4 mg/dL (1.8-2.4); POTASSIUM - SERUM 3.3 mmol/L (3.5-5.1); SODIUM 144 mmol/L (136-145); UREA NITROGEN 6 mg/dL (7-18); eGFR NON AFRICAN AMERICAN 79 mL/min (90-120)
[2016-12-15 08:41] VITALS: BP 121/66
--- NOTE | 2016-12-15 08:55 | NUR ---
LOLA FROST FROM THERAPY HERE AND IS TEACHING PT HOW TO PERFORM KEGAL EXERCISES.
--- NOTE | 2016-12-15 09:20 | NUR ---
Verbalized name and , reports no abdominal pain, dressing change to left abd as per orders. Patient verbalized possible discharge today.
--- NOTE | 2016-12-15 09:21 | NUR ---
Patient Name: RAMOS IRIZARRY Admission Status: Elective Admission Date: 12-11-2016 : 1950 Admission Diagnosis: Attending: TRAVIS Current LOS: 4 Anticipated DC Date: 12-15-2016 Planned Disposition: Home Health Service Primary Insurance: [facility] Discharge Planning Comments: CM met with patient to discuss discharge planning/needs. The patient's plan is to discharge home where he resides alone. He states he is independent of all ADL's but was followed by [employer] ([phone]) for dressing changes. He will need Resumption of Home Health at time of discharge. He states he does have home oxygen at 3LPM/NC but cannot remember the name of his DME supplier at this time. He denies additional DME at home or needs at this time. The patient states his home is a safe environment to return to. His [employer] "Rakan Subramanian" ([phone]) will be his transportation home. His sister "Yesenia Kumar" ([phone]) is his caregiver when needed at home although he states he is very independent. His pharmacy is [facility]) #[phone]. CM will continue to follow and assist as needed with discharge planning/needs. Rail Equipment Operator: Sigrid Goyal RN/REED * Is the patient Alert and Oriented? Yes 0 * How many steps to enter\\exit or inside your home? 0 0 * PCP Patient states he has no PCP but Dr. Carvajal manages his HH 0 * Pharmacy [facility]) [phone] 0 * Preadmission Environment Home Alone 0 * ADLs Independent 0 * Equipment Oxygen 0 * Other Equipment Patient is not able to remember name of DME supplier for home O2 0 * List name and contact numbers for known caregivers / representatives who currently or will assist patient after discharge: Yesenia Kumar-sister ([phone]) Rakan Subramanian [employer] ([phone]) 0 * Community resources currently utilized Home Health 0 * Please name any agencies selected above. [employer] ([phone]) ([facility]ED [facility] AT DISCHARGE) 0 * Additional services required to return to the preadmission environment? Yes 0 * Can the patient safely return to the preadmission environment? Yes 0 * Has this patient been hospitalized within the prior 30 days at any hospital? Yes 0 Grand Total: 0
--- NOTE | 2016-12-15 09:39 | NUR ---
12/15/2016 9:38 DCP: Discharge Planning Resumption info faxed and called to Anastacia with [facility].
--- NOTE | 2016-12-15 12:30 | NUR ---
IV removed left hand, catheter intact. No signs of infection. Tolerated well. Discharge instructions given, verbalized understanding.
--- NOTE | 2016-12-15 15:00 | EC ---
PATIENT:RAMOS IRIZARRY DATE OF SERVICE: 12/11/16 SEX: M MEDICAL RECORD: [id number] DATE OF : [birth year] LOCATION:D.MS Eli[facility] AGE OF PATIENT: 66 ADMISSION DATE: 12/11/16 REFERRING PHYSICIAN: INTERPRETING PHYSICIAN: BHAVESH PERSAUD MD ECHOCARDIOGRAM REPORT ECHO CHARGES 4 ECHO COMPLETE CLINICAL DIAGNOSIS: SOB/ACUTE RENAL FAILURE HX COPD ECHOCARDIOGRAPHIC MEASUREMENTS (adult normal given) AC root (d.<3.7cm) 3.8 LV Septum d (<1.2 cm> 1.4 Valve Excursion 1.3 LV Septum (systole) 1.6 Left Atria (s.<4.0cm> 4.3 LVPW d(<1.2cm) 1.0 RV (d.<2.3cm) 4.8 LVPW (sytole) 1.7 LV diastole(<5.6CM) 5.5 MV E-F(>70mm/sec) LV systole 3.7 LVOT Diameter 2.1 MV exc.(>10mm) 1.2 Est.ejection fraction (50-75%) Pericardial Effusion N DOPPLER: LVIT A 85.0 E 104 LA RVSP 26 LVOT 83 AOP1/2T Asc. Ao 123 RVOT RA PA AV Gradient Peak 6.07 AV Mean 2.44 AV Area 2.0 MV Gradient Peak 5.3 MV Mean 1.81 MV Area COMMENTS: Mobile Marketing Specialist: Daryn BARKSDALE Staffing Mgr:Lawrence Wilson TAPE# PACS DATE OF SERVICE: 12/12/2016 Adequate 2D echo, color flow, spectral Doppler, M-Mode. Mild LVH. LV internal dimension are normal. Wall motion is normal. EF is greater than or equal to 55%. Aortic valve is tricuspid. No stenosis by Doppler interrogation. The left atrium is mildly dilated at 4.3 cm. Mitral valve shows no prolapse. no significant MR. Right-sided chamber is grossly normal. Trace TR by color flow imaging. TRANSINT:[id number] Voice Confirmation ID: [id number] DOCUMENT ID: [id number] ECHOCARDIOGRAM REPORT [id number] RAMOS IRIZARRY BHAVESH PERSAUD MD at 1500 CC: [id number] DICTATION DATE: 12/12/16 1519 AQUARIST: 12/13/16 0943 DIS IN 12/15/16 [facility] [address] [place] [address]
[2016-12-15 16:13] LABS: ANCA - ANTIMYELOPEROXIDASE <9.0 U/mL (0.0-9.0); ANCA - ANTIPROTEINASE 3 <3.5 U/mL (0.0-3.5); ANCA - ATYPICAL <1:20 titer (Neg:<1:20); ANCA - CYTOPLASMIC <1:20 titer (Neg:<1:20); ANCA - PERINUCLEAR <1:20 titer (Neg:<1:20)
--- NOTE | 2016-12-24 09:12 | DS ---
PATIENT:RAMOS IRIZARRY :[birth year] MEDICAL RECORD: [id number] DISCHARGE SUMMARY ADMISSION DATE: 12/11/16 DISCHARGE DATE: 12/15/16 DATE OF ADMISSION: 12/11/2016 DATE OF DISCHARGE: 12/15/2016 ADMISSION DIAGNOSES: Renal failure and hematuria. DISCHARGE DIAGNOSES: Acute kidney failure, chronic obstructive pulmonary disease, hematuria. HOSPITAL COURSE: The patient was directly admitted from my office on 12/11/2016. The patient came in 2 weeks status post laparoscopic colostomy reversal. He was feeling fatigued, weak. He was mildly hypotensive when seen in the office. Lab work indicated that he was in acute renal failure. He was admitted to the hospital for IV fluid resuscitation, Pa catheter placement, IV antibiotics and serial monitoring of electrolytes as well as continuation of monitoring of urine output. The patient was also pancultured, which all cultures returned negative. Medicine was consulted for evaluation. The patient improved markedly over the next 3-4 days with IV fluid resuscitation. He was resumed on a regular diet, which he tolerated well. He was seen and evaluated by physical therapy. He was home O2 dependent, his home O2 requirement continued throughout his hospitalization. Once his BUN and creatinine were normal and he was having adequate urine output, the Pa was discontinued. At the time of discharge, he was tolerating a regular diet. He was having normal bowel function. He was urinating independently without difficulty. He remained oxygen dependent at the time he was discharged home with home health for physical therapy as well as monitoring his home O2 requirements. DISCHARGE CONDITION: Stable. DISCHARGE DIET: Regular as tolerated, no restrictions. DISCHARGE ACTIVITY: As tolerated, no restrictions. WOUND CARE: The patient may shower, soap and water to the wound daily. Continue daily wet-to-dry packings at previous left lower quadrant ostomy site through home health nursing. DISCHARGE MEDICATIONS: Please see electronic medical record for full list of discharge medications. TRANSINT:[id number] Voice Confirmation ID: [id number] DOCUMENT ID: [id number] EDIE SANTANA MD at 0912 CC: [id number] DICTATION DATE: 12/23/16 1007 ASSET PROTECTION AGENT: 12/24/16 0107 DIS IN 12/15/16 [facility] [id number] [place] [address]
== END 2016-12-15 12:30 | disposition home health service (06) | DRG 683 ==
LOC: D.RAD 10:10 → D.MS 11:59 → D.SDCHOLD 11:59 → D.MS 12:05
PROVIDERS: Family Medicine; ADMIT Surgery
DX: N17.9 Acute kidney failure, unspecified (principal); F17.203 Nicotine dependence unspecified, with withdrawal; J44.9 Chronic obstructive pulmonary disease, unspecified; R31.9 Hematuria, unspecified

== ENCOUNTER → 2017-01-12 11:04 | Outpatient (CLI) | payer MEDICARE ==
[2016-12-11 16:02] VITALS: BMI 25.7
[2017-01-12 11:30] LABS: HEMATOCRIT 49.4 % (42.0-54.0); HEMOGLOBIN 15.5 g/dL (13.5-17.5); LYMPHOCYTES 27.8 % (15-50); MCHC 31.4 g/dL (31.0-37.0); MCV 95.7 fL (80.0-100.0); MEAN PLATELET VOLUME 9.6 fL (7.4-10.4); NEUTROPHILS 58.7 % (40-80); RBC 5.16 10x6/uL (4.20-6.10); RDW 14.8 % (11.5-14.5); WBC 7.5 10x3/uL (4.8-10.8)
[2017-01-12 11:33] LABS: PLATELET COUNT 247 10x3/uL (130-400)
[2017-01-12 11:47] LABS: CALC OSMOLALITY 278 mosm/kg (275-300); CALCIUM 9.3 mg/dL (8.5-10.1); CARBON DIOXIDE 36.5 mmol/L (21.0-32.0); CHLORIDE - SERUM 102 mmol/L (98-107); CREATININE - SERUM 0.9 mg/dL (0.6-1.3); GLUCOSE 107 mg/dL (74-106); SODIUM 140 mmol/L (136-145); UREA NITROGEN 12 mg/dL (7-18); eGFR NON AFRICAN AMERICAN 89 mL/min (90-120)
== END | disposition home or self-care (01) ==
LOC: D.LAB 11:04
PROVIDERS: Surgery
DX: N19 Unspecified kidney failure (principal)

== ENCOUNTER → 2017-02-02 20:11 | Outpatient (CLI) | payer MEDICARE ==
[2016-12-11 16:02] VITALS: BMI 25.7
== END | disposition home or self-care (01) ==
LOC: D.LABREF 20:11
DX: Z13.9 Encounter for screening, unspecified (principal)

== ENCOUNTER → 2018-02-28 13:19 | Outpatient (CLI) | payer MEDICARE ==
[2016-12-11 16:02] VITALS: BMI 25.7
== END | disposition home or self-care (01) ==
LOC: D.LAB 13:00 → D.RT 14:00
DX: J44.9 Chronic obstructive pulmonary disease, unspecified (principal)